=== PATIENT | female | born 1960 | race Caucasian/White ===

== ENCOUNTER 2020-08-16 11:57 | Emergency (ER) | payer OTHER ==
[~2020-08-16 11:57] MED LIST: CYMBALTA60 MG PO; GLYBURIDE1.25 MG PO; HYDROXYZINE HCL25 MG PO; JANUMET 50-1,01 EACH PO; LISINOPRIL 20MG20 MG PO; LYRICA225 MG PO; QUETIAPINE FUMA50 M1 PO; SPIRONOLACTONE25 M1 PO; VITAMIN D1000 UNIT PO; ZOCOR20 MG PO
[2020-08-16] MEDS ORDERED: BACTROBAN NASAL1 GM (14:52)
[2020-08-16] MEDS ORDERED: VIBRAMYCIN100 MG PO (14:52)
== END 2020-08-16 14:53 | disposition home or self-care (01) ==
LOC: FER 11:57
DX: L01.00 Impetigo, unspecified (principal)
CPT/HCPCS: 73552; 73700

== ENCOUNTER 2020-10-02 12:15 | Emergency (ER) | payer OTHER ==
[~2020-10-02 12:15] MED LIST changes: +BACTROBAN NASAL1 GM; +VIBRAMYCIN100 MG PO
== END 2020-10-02 16:05 | disposition home or self-care (01) ==
LOC: FER 12:15
DX: R60.0 Localized edema (principal); E11.9 Type 2 diabetes mellitus without complications; I10 Essential (primary) hypertension; F17.210 Nicotine dependence, cigarettes, uncomplicated
CPT/HCPCS: 73590; 73610; 73630; 93971